=== PATIENT | female | born 1955 | race Caucasian/White ===

== ENCOUNTER 2019-04-22 10:11 | Day surgery (SDC) | payer MEDICARE, OTHER ==
[2019-04-22] VITALS (8 sets, daily range): BP systolic 105–134; BP diastolic 63–97
[~2019-04-22] VITALS: Ht 154.9 cm; Wt 100.0 kg
[~2019-04-22 10:11] MED LIST: ALPR-624 PO; DULO-31 PO; GABA-338 PO; OMEP40CA13 PO; ZOC40T PO
[2019-04-22] MEDS ORDERED: Trintellix PO (10:37)
[2019-04-22] MEDS ORDERED: CHOL50004 PO (10:37)
[2019-04-22] MEDS ORDERED: TRAZ-251 PO (10:37)
[2019-04-22] MEDS ORDERED: normal saline 1,000 ML IV SCH (10:45)
[2019-04-22] MEDS ORDERED: diphenhydrAMINE 25mg capsule PO PRN (10:45)
[2019-04-22] MEDS ORDERED: LIDOcaine 1% (10mg/ml) 2ml vial ONE (10:47)
--- NOTE | 2019-04-22 10:50 | NUR ---
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
[2019-04-22 11:03] LABS: BASOPHILS # (AUTO) 0.1 X10'3 (0-0.2); BASOPHILS % (AUTO) 1.3 % (0-1); EOSINOPHILS # (AUTO) 0.1 X10'3 (0-0.9); HEMATOCRIT 43.6 % (35.0-45.0); HEMOGLOBIN 14.6 g/dl (12.0-16.0); LYMPHOCYTES # (AUTO) 1.7 X10'3 (1.1-4.8); LYMPHOCYTES % (AUTO) 27.7 % (21-51); MEAN CORPUSCULAR HEMOGLOBIN 29.5 PG (27.0-31.0); MEAN CORPUSCULAR HGB CONC 33.4 g/dL (33.0-36.5); MEAN CORPUSCULAR VOLUME 88.3 FL (78-98); MEAN PLATELET VOLUME 7.3 FL (7.4-10.4); MONOCYTES # (AUTO) 0.5 X10'3 (0-0.9); MONOCYTES % (AUTO) 7.7 % (2-12); NEUTROPHILS # (AUTO) 3.8 X10'3 (1.8-7.7); NEUTROPHILS % (AUTO) 61.3 % (42-75); PLATELET COUNT 231 X10'3 (140-440); RED BLOOD COUNT 4.93 X10'6 (4.20-5.60); RED CELL DISTRIBUTION WIDTH 16.3 % (11.5-14.5); WHITE BLOOD COUNT 6.2 X10'3 (4.5-11.0)
[2019-04-22] MEDS ORDERED: iohexol 350 MG/ML 50ML vial IV ONE (11:05)
[2019-04-22] MEDS ORDERED: LIDOcaine 1% 30ml preserv. free vial ONE (11:05)
[2019-04-22] MEDS ORDERED: midazolam 2 mg/2 ml injection ONE (11:05)
[2019-04-22] MEDS ORDERED: fentaNYL/PF 50MCG/1 ML 2ML syringe ONE (11:05)
[2019-04-22] MEDS ORDERED: iohexol 350MG/ML 100ml bottle IV ONE (11:05)
--- NOTE | 2019-04-22 11:16 | NUR ---
MD Carbone is at the bedside.
[2019-04-22 11:18] LABS: ALBUMIN 4.4 G/DL (3.4-5.0); ANION GAP 11 (8-16); BLOOD UREA NITROGEN 20 MG/DL (7-18); BUN/CREATININE RATIO 22.2 (6.6-38.0); CALCIUM 9.6 MG/DL (8.5-10.1); CHLORIDE 104 MMOL/L (99-107); GLUCOSE 103 MG/DL (70-104); MAGNESIUM 2.1 MG/DL (1.5-2.4); POTASSIUM 4.3 MMOL/L (3.5-5.1); SODIUM 141 MMOL/L (135-145); TOTAL CARBON DIOXIDE 25.9 MMOL/L (24-32); eGFR 63 ML/MIN
== END 2019-04-22 15:39 | disposition home or self-care (01) ==
LOC: SSTAY O 10:11
PROVIDERS: ATTEND Internal Medicine Cardiovascular Disease
DX: R06.00 Dyspnea, unspecified (principal); Z87.891 Personal history of nicotine dependence; Z88.0 Allergy status to penicillin; Z88.8 Allergy status to other drugs, medicaments and biological substances; Z79.899 Other long term (current) drug therapy; Z79.01 Long term (current) use of anticoagulants
CPT/HCPCS: 36415; 80048; 83735; 85025; 85610; 93005; 93458; 99152; 99153; C1769; C1894; J1644; J2001; J2250; J3010; J7030; Q0163; Q9967; A4620; A6258; C1760